=== PATIENT | female | born 1950 | race Caucasian/White ===

== ENCOUNTER 2017-10-03 01:51 | Outpatient (RCR) | payer MEDICARE, BC, SELFPAY ==
[2017-10-03] MEDS: Normal Saline Flush 10 ML SYR IVP (07:15)
[2017-10-03] MEDS: Acetaminophen 325 MG TAB 650 MG PO (07:19)
[2017-10-03] MEDS: diphenhydrAMINE 25 MG CAP PO (07:19)
[2017-10-03 07:22] VITALS: BP 140/81; PULSE 67; RESP 18; TEMP 36.9
[2017-10-03 07:50] VITALS: BP 136/77; PULSE 64; RESP 20; TEMP 37.1
[2017-10-03 08:10] VITALS: BP 138/79; PULSE 59; RESP 18; TEMP 36.6
[2017-10-03 08:25] VITALS: PULSE 64; RESP 138; TEMP 36.6
[2017-10-03 08:40] VITALS: BP 135/69; PULSE 65; RESP 18; TEMP 36.5
[2017-10-03 09:10] VITALS: BP 146/77; PULSE 59; RESP 18; TEMP 37.1
[2017-10-31] VITALS (7 sets, daily range): BP systolic 131–149; BP diastolic 73–88; PULSE 57–63; RESP 18–20; TEMP 37–37.2; O2SAT 99
[2017-10-31] MEDS: Normal Saline Flush 10 ML SYR IVP (07:20)
[2017-10-31] MEDS: Acetaminophen 325 MG TAB 650 MG PO (07:20)
[2017-10-31] MEDS: diphenhydrAMINE 25 MG CAP PO (07:21)
[2017-12-26] VITALS (8 sets, daily range): BP systolic 133–147; BP diastolic 78–86; PULSE 54–88; RESP 18–19; TEMP 36.4–37.1; O2SAT 93–96
[2017-12-26] MEDS: Acetaminophen 325 MG TAB 650 MG PO (07:43)
[2017-12-26] MEDS: diphenhydrAMINE 25 MG CAP PO (07:44)
[2017-12-26] MEDS: Normal Saline Flush 10 ML SYR IVP (08:00)
== END 2018-02-02 ==
LOC: INF 10-31 01:18
PROVIDERS: Visit Provider Family Medicine
DX: M05.9 Rheumatoid arthritis with rheumatoid factor, unspecified (principal)
CPT/HCPCS: 96365 ×3; 96366 ×3; J1745 ×3

== ENCOUNTER 2018-02-15 02:01 | Outpatient (RCR) | payer MEDICARE, BC, SELFPAY ==
[2018-02-15] MEDS: diphenhydrAMINE 25 MG CAP PO (07:17)
[2018-02-15] MEDS: Acetaminophen 325 MG TAB 650 MG PO (07:17)
[2018-02-15] MEDS: Normal Saline Flush 10 ML SYR IVP (07:18)
[2018-02-15 08:00] VITALS: BP 129/77; PULSE 63; RESP 18; TEMP 37
[2018-02-15 08:15] VITALS: BP 146/86; PULSE 66; RESP 18; TEMP 36
[2018-02-15 08:30] VITALS: BP 135/70; PULSE 65; RESP 18; TEMP 36
== END 2018-03-04 23:59 | disposition home or self-care (01) ==
LOC: INF 02:01
PROVIDERS: Visit Provider Family Medicine
DX: M05.9 Rheumatoid arthritis with rheumatoid factor, unspecified (principal)
CPT/HCPCS: 96365; 96366; J1745

== ENCOUNTER 2018-04-10 01:44 | Outpatient (RCR) | payer MEDICARE, BC, SELFPAY ==
[2018-04-10] MEDS: Normal Saline Flush 10 ML SYR IVP (07:10)
[2018-04-10] MEDS: Acetaminophen 325 MG TAB 650 MG PO (07:31)
[2018-04-10] MEDS: diphenhydrAMINE 25 MG CAP PO (07:32)
[2018-04-10 07:41] VITALS: BP 141/78; PULSE 65; RESP 18; TEMP 36.6; O2SAT 95
[2018-04-10 07:45] VITALS: BP 146/65; PULSE 58; RESP 18; TEMP 37; O2SAT 95
[2018-04-10 08:00] VITALS: BP 136/77; PULSE 64; RESP 18; TEMP 37; O2SAT 95
[2018-04-10 08:15] VITALS: BP 136/70; PULSE 59; RESP 18; TEMP 36.6; O2SAT 98
[2018-04-10 08:30] VITALS: BP 143/83; PULSE 65; RESP 18; TEMP 36.4; O2SAT 94
[2018-04-10 09:29] VITALS: BP 137/81; PULSE 61; RESP 18; TEMP 36.6; O2SAT 98
== END 2018-05-04 23:59 | disposition home or self-care (01) ==
LOC: INF 01:44
PROVIDERS: Visit Provider Family Medicine
DX: M05.9 Rheumatoid arthritis with rheumatoid factor, unspecified (principal)
CPT/HCPCS: 96365; 96366; J1745

== ENCOUNTER 2018-06-08 02:16 | Outpatient (RCR) | payer MEDICARE, BC, SELFPAY ==
[2018-06-08] MEDS: diphenhydrAMINE 25 MG CAP PO (09:07)
[2018-06-08] MEDS: Acetaminophen 325 MG TAB 650 MG PO (09:07)
[2018-06-08] MEDS: Normal Saline Flush 10 ML SYR IVP (09:08)
[2018-06-08 09:09] VITALS: BP 153/81; PULSE 66; RESP 18; TEMP 36.4; O2SAT 92
[2018-06-08 10:00] VITALS: BP 170/80; PULSE 62; RESP 18; TEMP 36.1; O2SAT 96
[2018-06-08 10:35] VITALS: BP 165/75; PULSE 61; RESP 18; TEMP 36.1; O2SAT 94
[2018-06-08 11:00] VITALS: BP 143/81; PULSE 58; RESP 18; TEMP 36.8; O2SAT 95
== END 2018-07-05 23:59 | disposition home or self-care (01) ==
LOC: INF 02:16
PROVIDERS: Visit Provider Family Medicine
DX: M05.9 Rheumatoid arthritis with rheumatoid factor, unspecified (principal)
CPT/HCPCS: 96365; 96366; J1745

== ENCOUNTER 2018-08-03 00:42 | Outpatient (RCR) | payer MEDICARE, BC, SELFPAY ==
[2018-08-03 07:37] VITALS: BP 157/89; PULSE 72; RESP 18; TEMP 36.3; O2SAT 95
[2018-08-03] MEDS: Acetaminophen 325 MG TAB 650 MG PO (07:38)
[2018-08-03] MEDS: diphenhydrAMINE 25 MG CAP PO (07:39)
[2018-08-03] MEDS: Normal Saline Flush 10 ML SYR IVP (08:13)
[2018-08-03 08:24] VITALS: BP 157/91; PULSE 71; RESP 18; TEMP 36.9; O2SAT 94
[2018-08-03 08:38] VITALS: BP 178/86; PULSE 69; RESP 18; TEMP 36.8; O2SAT 93
[2018-08-03 09:04] VITALS: BP 139/83; PULSE 66; RESP 18; TEMP 36.5; O2SAT 93
[2018-08-03 09:29] VITALS: BP 135/75; PULSE 65; RESP 18; TEMP 36.4; O2SAT 94
[2018-08-03 09:57] VITALS: BP 143/81; PULSE 63; RESP 18; TEMP 36.6; O2SAT 95
== END 2018-09-02 23:59 | disposition home or self-care (01) ==
LOC: INF 00:42
PROVIDERS: Visit Provider Family Medicine
DX: M05.9 Rheumatoid arthritis with rheumatoid factor, unspecified (principal)
CPT/HCPCS: 96365; 96366

== ENCOUNTER 2018-10-02 01:14 | Outpatient (RCR) | payer MEDICARE, BC, SELFPAY ==
[2018-10-02 07:35] VITALS: BP 155/94; PULSE 65; RESP 18; TEMP 36.4
[2018-10-02] MEDS: Normal Saline Flush 10 ML SYR IVP (08:09)
[2018-10-02 08:25] VITALS: BP 155/92; PULSE 65; RESP 16; TEMP 36.7; O2SAT 99
[2018-10-02 08:42] VITALS: BP 159/100; PULSE 69; RESP 16; TEMP 37; O2SAT 95
[2018-10-02 09:07] VITALS: BP 154/92; PULSE 65; RESP 16; TEMP 36.7; O2SAT 96
[2018-10-02 09:56] VITALS: BP 170/100; PULSE 71; RESP 18; TEMP 36
== END 2018-10-02 23:59 | disposition home or self-care (01) ==
LOC: INF 01:14
PROVIDERS: Visit Provider Family Medicine
DX: M05.9 Rheumatoid arthritis with rheumatoid factor, unspecified (principal)
CPT/HCPCS: 96365; 96366

== ENCOUNTER 2018-12-03 01:20 | Outpatient (RCR) | payer MEDICARE, BC, SELFPAY ==
[2018-12-03] VITALS (7 sets, daily range): BP systolic 125–149; BP diastolic 80–94; PULSE 54–62; RESP 18; TEMP 36.2–36.6; O2SAT 97–99
[2018-12-03] MEDS: Acetaminophen 325 MG TAB 650 MG PO (07:10)
[2018-12-03] MEDS: Cetirizine 10 MG TAB PO (07:22)
== END 2019-01-02 23:59 | disposition home or self-care (01) ==
LOC: INF 01:20
PROVIDERS: PCP Family Medicine; Visit Provider Family Medicine
DX: L40.50 Arthropathic psoriasis, unspecified (principal)
CPT/HCPCS: 96365; 96366; J1745

== ENCOUNTER 2019-01-23 01:37 | Outpatient (RCR) | payer MEDICARE, BC, SELFPAY ==
[2019-01-23] MEDS: Acetaminophen 325 MG TAB 650 MG PO (07:07)
[2019-01-23] MEDS: Loratidine 10 MG TAB PO (07:07)
[2019-01-23] MEDS: Normal Saline Flush 10 ML SYR IVP (07:07)
[2019-01-23 07:10] VITALS: BP 173/76; PULSE 72; RESP 18; TEMP 36.4; O2SAT 99
[2019-01-23 08:01] VITALS: BP 146/80; PULSE 62; RESP 18; TEMP 37; O2SAT 98
[2019-01-23 08:15] VITALS: BP 147/80; PULSE 61; RESP 18; TEMP 36.5; O2SAT 99
[2019-01-23 08:30] VITALS: BP 135/75; PULSE 75; RESP 18; TEMP 36.6; O2SAT 99
[2019-01-23 08:46] VITALS: BP 145/85; RESP 18; TEMP 36.5; O2SAT 98
== END 2019-02-02 23:59 | disposition home or self-care (01) ==
LOC: INF 01:37
PROVIDERS: PCP Family Medicine; Visit Provider Family Medicine
DX: L40.50 Arthropathic psoriasis, unspecified (principal)
CPT/HCPCS: 96365; 96366; J1745

== ENCOUNTER 2019-03-19 01:50 | Outpatient (RCR) | payer MEDICARE, BC, SELFPAY ==
[2019-03-19] VITALS (8 sets, daily range): BP systolic 136–163; BP diastolic 72–100; PULSE 57–67; RESP 18–20; TEMP 36.7–37.1; O2SAT 96–99
[2019-03-19] MEDS: Acetaminophen 325 MG TAB 650 MG PO (07:25)
[2019-03-19] MEDS: Loratidine 10 MG TAB PO (07:25)
[2019-03-19 08:17] LABS: Abs Immature Grans 0.01 k/cumm (0.0-0.09); Absolute Basophil Count 0.02 k/cumm (0.0-0.2); Absolute Eosinophil Count 0.08 k/cumm (0.0-0.7); Absolute Monocyte Count 0.31 k/cumm (0.11-0.7); Absolute Neutrophil Count 2.58 k/cumm (1.2-6.7); Basophils % 0.5; HGB 12.2 g/dL (12.0-15.5); Immature Grans % 0.2; Lymphocytes % 26.8; Mean Corp. HGB Concentration 32.1 g/dL (32.0-36.0); Mean Corpuscular Hemoglobin 30.4 pg (27.0-33.0); Mean Corpuscular Volume 94.8 fL (80-95); Mean Platelet Volume 10.7 fL (8.0-11.0); Monocytes % 7.6; Neutrophils % 62.9; Platelet Count 180 x1000/uL (130-400); RBC 4.01 m/cumm (4.00-5.20); RBC Distribution Width 13.9 % (11.7-14.6)
[2019-03-19] MEDS: Normal Saline Flush 10 ML SYR IVP (08:32)
[2019-03-19 08:38] LABS: ALT 21 U/L (14-59); AST 17 U/L (15-37); Albumin 3.4 g/dL (3.4-5.0); Alkaline Phosphatase 86 U/L (46-116); Anion Gap 5.9 mmol/L (3-11); BUN 17 mg/dL (7-18); Bilirubin, Total 0.5 mg/dL (0.2-1.0); CO2 29.1 mmol/L (21.0-32.0); CREATININE 0.79 mg/dL (0.55-1.02); Calcium 8.2 mg/dL (8.5-10.1); Chloride 108 mmol/L (98-107); Glucose 93 mg/dL (70-100); Potassium 3.9 mmol/L (3.5-5.1); Sodium 143 mmol/L (136-145); Total Protein 7.5 g/dL (6.4-8.2)
[2019-03-20 10:13] LABS: Cyclic Citrullinated Peptide <2.5 U/mL (<5.0)
[2019-03-20 11:33] LABS: Rheumatoid Factor 14 IU/mL (<12.5)
== END 2019-04-04 23:59 | disposition home or self-care (01) ==
LOC: INF 01:50
PROVIDERS: Internal Medicine Rheumatology; PCP Family Medicine; Visit Provider Family Medicine
DX: Z79.899 Other long term (current) drug therapy (principal); M19.90 Unspecified osteoarthritis, unspecified site; L40.50 Arthropathic psoriasis, unspecified
CPT/HCPCS: 36415; 80053; 86200; 96365; 96366; 85025; 86431; J1745

== ENCOUNTER 2019-05-08 01:18 | Outpatient (RCR) | payer MEDICARE, BC, SELFPAY ==
[2019-05-08] MEDS: Acetaminophen 325 MG TAB 650 MG PO (08:54)
[2019-05-08] MEDS: Loratidine 10 MG TAB PO (08:55)
[2019-05-08 09:33] VITALS: BP 117/62; PULSE 76; RESP 18; TEMP 37.1; O2SAT 96
[2019-05-08 09:48] VITALS: BP 133/80; PULSE 86; RESP 18; TEMP 37; O2SAT 100
[2019-05-08 10:03] VITALS: BP 133/76; PULSE 67; RESP 18; TEMP 36.7; O2SAT 96
[2019-05-08 10:17] VITALS: BP 168/77; PULSE 66; RESP 19; TEMP 37; O2SAT 97
[2019-05-08 10:47] VITALS: BP 155/84; PULSE 66; RESP 18; TEMP 37; O2SAT 96
[2019-05-08 11:17] VITALS: BP 157/80; PULSE 65; RESP 18; TEMP 37; O2SAT 96
== END 2019-06-04 23:59 | disposition home or self-care (01) ==
LOC: INF 01:18
PROVIDERS: PCP Family Medicine; Visit Provider Family Medicine
DX: L40.50 Arthropathic psoriasis, unspecified (principal)
CPT/HCPCS: 96365; 96366; J1745

== ENCOUNTER 2019-06-26 01:54 | Outpatient (RCR) | payer MEDICARE, BC, SELFPAY ==
[2019-06-26] VITALS (8 sets, daily range): BP systolic 117–146; BP diastolic 67–90; PULSE 58–77; RESP 18–19; TEMP 36.5–37.1; O2SAT 96–100
[2019-06-26] MEDS: Loratidine 10 MG TAB PO (09:06)
[2019-06-26] MEDS: Acetaminophen 325 MG TAB 650 MG PO (09:07)
[2019-06-26] MEDS: Normal Saline Flush 10 ML SYR IVP (09:09)
== END 2019-07-05 23:59 | disposition home or self-care (01) ==
LOC: INF 01:54
PROVIDERS: PCP Family Medicine; Visit Provider Family Medicine
DX: L40.50 Arthropathic psoriasis, unspecified (principal)
CPT/HCPCS: 96365; 96366; 96413; 96415; J1745

== ENCOUNTER 2019-10-08 02:07 | Outpatient (RCR) | payer MEDICARE, BC, SELFPAY ==
[2019-08-14] VITALS (7 sets, daily range): BP systolic 135–158; BP diastolic 75–94; PULSE 65–76; RESP 18–19; TEMP 36.3–36.9; O2SAT 96–99
[2019-08-14] MEDS: Normal Saline Flush 10 ML SYR IVP (09:06)
[2019-08-14] MEDS: Acetaminophen 325 MG TAB 650 MG PO (09:10)
[2019-08-14] MEDS: Loratidine 10 MG TAB PO (09:10)
== END 2019-10-08 23:59 | disposition home or self-care (01) ==
LOC: INF 02:07
PROVIDERS: PCP Family Medicine; Visit Provider Family Medicine
DX: L40.50 Arthropathic psoriasis, unspecified (principal)
CPT/HCPCS: 96365; 96366; 96413; 96415; J1745

== ENCOUNTER 2019-10-08 07:57 | Outpatient (RCR) | payer MEDICARE, BC, SELFPAY ==
[2019-10-08] MEDS: Acetaminophen 325 MG TAB 650 MG PO (08:14)
[2019-10-08] MEDS: Normal Saline Flush 10 ML SYR IVP (08:14)
[2019-10-08] MEDS: Loratidine 10 MG TAB PO (08:14)
[2019-10-08 08:46] LABS: TSH 4.89 uIU/mL (0.36-3.74)
[2019-10-08 08:55] VITALS: BP 128/88; PULSE 81; RESP 18; TEMP 37; O2SAT 97
[2019-10-08 08:56] VITALS: BP 132/80; PULSE 69; RESP 19; TEMP 37.1; O2SAT 96
[2019-10-08 09:11] VITALS: BP 173/76; PULSE 68; RESP 18; TEMP 37; O2SAT 94
[2019-10-08 09:26] VITALS: BP 135/85; PULSE 69; RESP 19; TEMP 36.6; O2SAT 96
[2019-10-08 09:42] VITALS: BP 127/84; PULSE 72; RESP 18; TEMP 36.6; O2SAT 97
[2019-10-08 10:12] VITALS: BP 128/76; PULSE 59; RESP 18; TEMP 36.8; O2SAT 98
== END 2019-11-03 23:59 | disposition home or self-care (01) ==
LOC: INF 07:57
PROVIDERS: PCP Family Medicine; Visit Provider Family Medicine
DX: E03.9 Hypothyroidism, unspecified (principal); L40.50 Arthropathic psoriasis, unspecified
CPT/HCPCS: 36415; 96365; 96366; 96413; 96415; 84443; J1745

== ENCOUNTER 2019-11-27 01:57 | Outpatient (RCR) | payer MEDICARE, BC, SELFPAY ==
[2019-11-27] VITALS (7 sets, daily range): BP systolic 125–156; BP diastolic 67–92; PULSE 58–63; RESP 18–19; TEMP 36.2–36.7; O2SAT 95–98
[2019-11-27] MEDS: Normal Saline Flush 10 ML SYR IVP (08:20)
[2019-11-27] MEDS: Loratidine 10 MG TAB PO (08:24)
[2019-11-27] MEDS: Acetaminophen 325 MG TAB 650 MG PO (08:24)
== END 2019-12-03 23:59 | disposition home or self-care (01) ==
LOC: INF 01:57
PROVIDERS: PCP Family Medicine; Visit Provider Family Medicine
DX: L40.59 Other psoriatic arthropathy (principal)
CPT/HCPCS: 96365; 96366; 96413; 96415; J1745

== ENCOUNTER 2020-01-15 02:21 | Outpatient (RCR) | payer MEDICARE, BC, SELFPAY ==
[2020-01-15] VITALS (7 sets, daily range): BP systolic 138–159; BP diastolic 70–87; PULSE 57–67; RESP 18–19; TEMP 36.2–36.6; O2SAT 94–99
[2020-01-15] MEDS: Normal Saline Flush 10 ML SYR IVP (08:30)
[2020-01-15] MEDS: Loratidine 10 MG TAB PO (09:15)
[2020-01-15] MEDS: Acetaminophen 325 MG TAB 650 MG PO (09:20)
== END 2020-02-03 23:59 | disposition home or self-care (01) ==
LOC: INF 02:21
PROVIDERS: PCP Family Medicine; Visit Provider Family Medicine
DX: L40.59 Other psoriatic arthropathy (principal)
CPT/HCPCS: 96365; 96366; 96413; 96415; J1745

== ENCOUNTER 2020-03-04 08:30 | Outpatient (RCR) | payer MEDICARE, BC, SELFPAY ==
[2020-03-04] VITALS (7 sets, daily range): BP systolic 126–159; BP diastolic 75–84; PULSE 57–66; RESP 15–19; TEMP 36.2–36.9; O2SAT 94–98
[2020-03-04] MEDS: Acetaminophen 325 MG TAB 650 MG PO (08:59)
[2020-03-04] MEDS: Loratidine 10 MG TAB PO (08:59)
[2020-03-04] MEDS: Normal Saline Flush 10 ML SYR IVP (09:21)
== END 2020-03-04 23:59 | disposition home or self-care (01) ==
LOC: INF 08:30
PROVIDERS: PCP Family Medicine; Visit Provider Family Medicine
DX: L40.59 Other psoriatic arthropathy (principal)
CPT/HCPCS: 96365; 96366

== ENCOUNTER 2020-04-21 08:30 | Outpatient (RCR) | payer MEDICARE, BC, SELFPAY ==
[2020-04-21] VITALS (7 sets, daily range): BP systolic 118–132; BP diastolic 71–86; PULSE 61–111; RESP 18–19; TEMP 36.7–37.5; O2SAT 95–100
[2020-04-21] MEDS: Loratidine 10 MG TAB PO (08:43)
[2020-04-21] MEDS: Acetaminophen 325 MG TAB 650 MG PO (08:43)
== END 2020-05-04 23:59 | disposition home or self-care (01) ==
LOC: INF 08:30
PROVIDERS: PCP Family Medicine; Visit Provider Family Medicine
DX: L40.50 Arthropathic psoriasis, unspecified (principal)
CPT/HCPCS: 96365; 96366; 96413; 96415

== ENCOUNTER 2020-06-09 08:00 | Outpatient (RCR) | payer MEDICARE, BC, SELFPAY ==
[2020-05-05 00:01] VITALS: BP 129/84; PULSE 61; RESP 19; TEMP 36.8
[2020-06-09 08:01] VITALS: BP 137/72; PULSE 98; RESP 19; TEMP 36.9; O2SAT 97
[2020-06-09] MEDS: Normal Saline Flush 10 ML SYR IVP ×2 (08:10→08:42)
[2020-06-09] MEDS: Acetaminophen 325 MG TAB 650 MG PO (08:13)
[2020-06-09] MEDS: Loratidine 10 MG TAB PO (08:13)
[2020-06-09 08:42] VITALS: BP 133/89; PULSE 102; RESP 18; TEMP 36.9; O2SAT 96
[2020-06-09 08:57] VITALS: BP 133/80; PULSE 75; RESP 18; TEMP 36.8; O2SAT 97
[2020-06-09 09:12] VITALS: BP 130/82; PULSE 90; RESP 18; TEMP 36.8; O2SAT 97
[2020-06-09 09:27] VITALS: BP 151/85; PULSE 98; RESP 18; TEMP 37.1; O2SAT 96
[2020-06-09 09:57] VITALS: BP 159/93; PULSE 92; RESP 18; TEMP 36.8; O2SAT 99
== END 2020-07-05 23:59 | disposition home or self-care (01) ==
LOC: INF 08:00
PROVIDERS: PCP Family Medicine; Visit Provider Family Medicine
DX: L40.59 Other psoriatic arthropathy (principal)
CPT/HCPCS: 96365; 96366; J1745

== ENCOUNTER 2020-08-25 02:24 | Outpatient (RCR) | payer MEDICARE, BC, SELFPAY ==
[2020-07-06 00:02] VITALS: BP 159/93; PULSE 92; RESP 18; TEMP 36.8
[2020-08-25] MEDS: Loratidine 10 MG TAB PO (09:19)
[2020-08-25] MEDS: Acetaminophen 325 MG TAB 650 MG PO (09:19)
[2020-08-25] MEDS: Normal Saline Flush 10 ML SYR IVP ×2 (09:22→09:49)
[2020-08-25 09:52] VITALS: BP 127/86; PULSE 69; RESP 20; TEMP 36.3; O2SAT 98
[2020-08-25 10:15] VITALS: BP 139/93; PULSE 64; RESP 16; TEMP 36.4; O2SAT 99
[2020-08-25 10:40] VITALS: BP 132/86; PULSE 86; RESP 18; TEMP 36.7; O2SAT 96
[2020-08-25 11:10] VITALS: BP 137/83; PULSE 69; RESP 16; TEMP 37.2; O2SAT 100
[2020-08-25 11:45] VITALS: BP 137/77; PULSE 91; RESP 20; TEMP 36.6; O2SAT 95
== END 2020-09-02 23:59 | disposition home or self-care (01) ==
LOC: INF 02:24
PROVIDERS: PCP Family Medicine; Visit Provider Family Medicine
DX: L40.59 Other psoriatic arthropathy (principal)
CPT/HCPCS: Q5104; 96365; 96366; 96413; 96415; J1745

== ENCOUNTER 2020-10-30 04:27 | Outpatient (RCR) | payer MEDICARE, BC, SELFPAY ==
[2020-09-03 00:11] VITALS: BP 137/77; PULSE 91; RESP 20; TEMP 36.6
[2020-10-30] MEDS: Acetaminophen 325 MG TAB 650 MG PO (07:49)
[2020-10-30] MEDS: Loratidine 10 MG TAB PO (07:49)
[2020-10-30 08:10] VITALS: BP 134/85; PULSE 85; RESP 17; TEMP 37.2; O2SAT 98
[2020-10-30] MEDS: Normal Saline Flush 10 ML SYR IVP (08:29)
[2020-10-30 08:45] VITALS: BP 113/74; PULSE 64; RESP 16; TEMP 37; O2SAT 98
[2020-10-30 09:00] VITALS: BP 126/81; PULSE 76; RESP 16; TEMP 37; O2SAT 97
[2020-10-30 09:15] VITALS: BP 137/82; PULSE 74; RESP 16; TEMP 36.7; O2SAT 97
[2020-10-30 09:30] VITALS: BP 122/80; PULSE 63; RESP 16; TEMP 36.9; O2SAT 97
[2020-10-30 10:06] VITALS: BP 134/87; PULSE 78; RESP 16; TEMP 37.1; O2SAT 98
== END 2020-11-02 23:59 | disposition home or self-care (01) ==
LOC: INF 04:27
PROVIDERS: PCP Family Medicine; Visit Provider Family Medicine
DX: L40.59 Other psoriatic arthropathy (principal)
CPT/HCPCS: 96365; 96366; 96413; 96415; J1745

== ENCOUNTER 2021-01-15 04:29 | Outpatient (RCR) | payer MEDICARE, BC, SELFPAY ==
[2020-11-03 00:13] VITALS: BP 134/87; PULSE 78; RESP 16; TEMP 37.1
[2021-01-15] VITALS (7 sets, daily range): BP systolic 112–148; BP diastolic 75–85; PULSE 73–84; RESP 14–16; TEMP 36.3–37.3; O2SAT 96–100
[2021-01-15] MEDS: Acetaminophen 325 MG TAB 650 MG PO (12:40)
[2021-01-15] MEDS: Loratidine 10 MG TAB PO (12:41)
== END 2021-02-02 23:59 | disposition home or self-care (01) ==
LOC: INF 04:29
PROVIDERS: PCP Family Medicine; Visit Provider Family Medicine
DX: L40.59 Other psoriatic arthropathy (principal)
CPT/HCPCS: 36415; 96365; 96366; 96413; 96415; J1745

== ENCOUNTER → 2021-02-09 10:45 | Outpatient (BNVA) | payer MEDICARE, BC, SELFPAY | PROVIDERS: PCP Family Medicine; Referring Provider Family Medicine; Visit Provider Surgery | DX: L98.8 Other specified disorders of the skin and subcutaneous tissue (principal) | CPT/HCPCS: 99203 ==

== ENCOUNTER 2021-03-01 02:50 | Outpatient (CLI) | payer MEDICARE, BC, SELFPAY ==
[2021-03-01 10:33] LABS: Source Nasal/Nares
[2021-03-01 13:33] LABS: COVID-19 PCR Negative (Negative)
== END 2021-03-01 02:51 | disposition home or self-care (01) ==
LOC: LBO 02:51
PROVIDERS: PCP Family Medicine; Visit Provider Surgery
DX: Z20.822 Contact with and (suspected) exposure to COVID-19 (principal); Z01.818 Encounter for other preprocedural examination
CPT/HCPCS: 87635

== ENCOUNTER 2021-03-03 06:17 | Day surgery (SDC) | payer MEDICARE, BC, SELFPAY ==
[2021-03-03 06:20] VITALS: BP 144/96; PULSE 63; RESP 18; TEMP 36.5; O2SAT 99
--- NOTE | 2021-03-03 07:03 | W.PM.OP ---
Date of service: 03/03/21 Time of Service: 07:30 Operative Note Operative Note DATE OF PROCEDURE: 03/03/21 PRE-OP DIAGNOSIS: Right upper extremity skin lesion and left temporal skin lesion POST-OP DIAGNOSIS: same PROCEDURE: excision of skin lesions SURGEON: Gilda Tadeo ANESTHESIA TYPE: Local By Surgeon and MAC Refer to Anesthesia Record ESTIMATED BLOOD LOSS: 25 PATHOLOGY: other (RUE skin lesion and left temporal lesion) COMPLICATIONS: None Patient was transported to: same day Patient's condition: stable Indications: RUE lesion suspicious for squamous vs basel cell cancer. Left temporal lesion ? benign nevus vs atypical. Recommend excision of both in the OR under MAC sedation. Risks, benefits, complications of the procedure were reviewed with her. Complications include but are not limited to bleeding, infection, wound dehiscence, recurrence and need for further resection if margins are not clear. Questions were entertained and answered to her satisfaction and she wished to proceed. Proceed with excision of skin lesions under MAC sedation with local. Procedure Description: After informed consent was obtained the patient was taken to the Operating room and placed in a supine position. Her right upper extremity was extended and placed on an arm board. Her head was rotated to the right. The patient was placed under deep sedation by anesthesia. A time out was done. The patients name, , procedure to be performed and site, allergies to medications, antibiotic prophilaxis were reviewed. Fire risk was assessed. The skin on her left adventist was then prepped and draped in a sterile surgical fashion. 0.5% Bupivocaine was injected into the dermis and subcutaneous tissue of the left adventist. An incision measuring 1.5 x 0.8 cm was made with a 15 blade around the skin lesion. Dissection was done down to the subcutaneous tissue with cautery. The lesion was removed and a stitch was placed on the lateral border and placed in formalin. There was a small amount of bleeding and this was stopped with cautery. The subcutaneous tissue was re-approximated with a running 4-0 Vicryl suture. Interrupted 3-0 proline was used to re-approximate the dermis. Skin was cleaned and dried. Next the skin on her RUE was then prepped and draped in a sterile surgical fashion. 0.5% Bupivocaine was injected into the dermis and subcutaneous tissue of the RUE. An incision measuring 7 x 3 cm was made with a 15 blade around the skin lesion. Dissection was done down to the subcutaneous tissue with cautery. The lesion was removed and a stitch was placed on the medial border and placed in formalin. There was a small amount of bleeding and this was stopped with cautery. The subcutaneous tissue was re-approximated with interrupted 3-0 Vicryl suture. Interrupted 3-0 proline was used to re-approximate the dermis. Skin was cleaned and dried. Mastasol and steri-strips were applied. 4x4 were placed over the incision and secured with Coban. The patient tolerated the procedure well and there were no immediate complications. Needle and sponge counts were correct at the end of the case.
--- NOTE | 2021-03-03 07:04 | PDOC.DSDIS_ITS ---
Discharge Plan Disposition Patient Disposition: HOME Condition: Good Discharge Details Reason For Visit: Excision of skin lesions Attending Provider: Gilda Tadeo Primary Care Provider: Mariam Winn Home Meds and New Rx's Prescriptions: Continued Remicade 100 mg recon soln IV RF: 0 naproxen sodium [Aleve] 220 mg capsule 220 mg PO Q12H RF: 0 albuterol sulfate [Ventolin HFA] 90 mcg/actuation HFA aerosol inhaler 2 puff inhalation Q6H PRNRF: 0 levothyroxine 25 mcg capsule 25 mcg PO DAILY RF: 0 Discharge Instructions Additional Instructions: Activity at Home after surgery: 1. As tolerated Diet, Nutrition, & wound healin. As tolerated Pain Medications: 1. Tylenol 650mg every 6 hours as needed and Ibuprofen 600 mg every 6 hours as needed. You may alternate between the 2 medications every 3 hours 2. If a narcotic has been prescribed take as directed only for breakthrough pain For Constipation: 1. Take Milk of Magnesia or MiraLax as needed for constipation Other: 1. You may shower daily. Do not scrub the incisions 2. Do not soak the incisions for 1 week 3. You may alternate ice and heat as needed for pain and swelling Wound Care: 1. Keep the incisions clean and dry 2. Cover arm incision when working in the garden Please call our office if you develop: 1. Fevers >101.5 2. Nausea or Vomiting 3. Worsening pain 4. Redness and thick discharge from the wounds If after hours please call the Hospital at and ask to speak to the on-call surgeon Referrals: Michelle Soliman PA [[employer]] - 03/18/21 11:00 am Activity:: Activity as Tolerated Diet:: As Tolerated Discharge Orders Discharge Orders: Discharge Order (Routine); Ordered 03/03/21 Ordered By: Gilda Tadeo
[2021-03-03] MEDS: Lactated Ringers 1,000 ML 80 ML IV (07:05)
--- NOTE | 2021-03-03 07:13 | ANES.PREOP_ITS ---
General Info Date of Service Date Performed: 03/03/21 Height: 5 ft 3 in Weight: 97.5 kg Body Mass Index (BMI): 38.0 Surgical Procedure: Operation Date: 03/03/21 07:40 Proposed Procedures Side Surgeon p EXCISION SKIN LESION LT BAPTISM Left Gilda Tadeo MD Meds Allergies and Home Medications Allergies Allergy/AdvReac Type Severity Reaction Status Date / Time No Known Allergies Allergy Verified 03/03/21 05:56 Home Medication Medication Instructions Recorded albuterol sulfate 90 mcg/actuation 2 puff INHALATION Q6H PRN 02/09/21 aerosol inhaler infliximab 100 mg intravenous IV 02/09/21 solution levothyroxine 25 mcg capsule 25 mcg PO DAILY 02/09/21 naproxen sodium 220 mg capsule 220 mg PO Q12H 02/09/21 Current Visit Medications: Current Medications Generic Name Dose Route Start Last Admin Trade Name Freq PRN Reason Stop Dose Admin Ringer's Solution 1,000 mls @ 80 mls/hr 03/03/21 06:00 03/03/21 07:05 IV 04/01/21 23:59 80 mls/hr INFUSION [facility] Administration Cefazolin Sodium/Dextrose 2 gm in 50 mls @ 100 mls/hr 03/03/21 06:00 Ancef Duplex IVPB 03/03/21 16:00 PREOP REFUGIO Ondansetron HCl 4 mg/ Sodium 52 mls @ 200 mls/hr 03/03/21 07:06 Chloride IVPB Q6H PRN PRN IV Miscellaneous Supplies 1 each 03/03/21 06:00 Iv Access IV 04/01/21 23:59 DIRECTED REFUGIO Ibuprofen 600 mg 03/03/21 07:06 Ibuprofen 600 Mg Tab PO Q6H PRN PRN Pain Sodium Chloride 0 ml 03/03/21 06:00 Normal Saline Flush 10 Ml Syr IV 04/01/21 23:59 PRN PRN Sodium Chloride 0 ml 03/03/21 06:00 Normal Saline 10 Ml Vial IJ 04/01/21 23:59 DIRECTED PRN Sterile Water 0 ml 03/03/21 06:00 Water,Injection,Sterile 10 Ml Vial IJ 04/01/21 23:59 DIRECTED PRN PFSH Active Problems Active Problems: Problem Status Onset Code Skin lesions L98.9 Reactive airway disease J45.909 Psoriasis L40.9 Morbid obesity E66.01 Hypothyroid E03.9 Osteoarthritis M19.90 Osteopenia M85.80 Rheumatoid arthritis M06.9 Medical History Medical History Hypothyroid Morbid obesity Osteoarthritis Osteopenia Psoriasis Reactive airway disease Rheumatoid arthritis Surgical History Surgical History (Updated 03/03/21 @ 07:08 by Valentine Walton) History of arthroscopic knee surgery History of cholecystectomy Tobacco Smoking/Tobacco Use Status: Never Alcohol Alcohol Intake: never Substance Use Substance use type: does not use Vital Signs and Lab Results Vital Signs Most Recent Vital Signs in EMR: Most Recent Vital Signs Temp Pulse Resp BP Pulse Ox 36.5 C 63 18 144/96 H 99 03/03/21 06:20 03/03/21 06:20 03/03/21 06:20 03/03/21 06:20 03/03/21 06:20 Lab Results Blood Type / Crossmatch: No Data to Display Complete Blood Count: No Data to Display Complete Metabolic Panel: No Data to Display Liver Function Panel: No Data to Display Coagulation Panel: No Data to Display Cardiac Panel: No Data to Display Arterial Blood Gas: No Data to Display Venous Blood Gas: No Data to Display Pancreas Panel: No Data to Display Thyroid Panel: No Data to Display Infectious Disease: Coronavirus (COVID-19)(PCR) Negative (Negative) 03/01/21 08:57 03/01/21 Coronavirus 2019 Source Nasal/Nares 03/01/21 08:57 03/01/21 Blood Cultures: No Data to Display Toxicology Panel: No Data to Display Anesthesia Assessment and Plan Anesthesia History Personal History: No History of Anesthesia Complications Family History: No Family History of Anesthesia Complications Exercise Tolerance Exercise Tolerance: Metabolic Equivalents>4 Pertinent Negatives Pertinent Negatives: No Symptoms of GERD, No Major Cardiovascular Symptoms or Complaints, No Major Pulmonary Symptoms or Complaints and No History of CVA/TIA Cardiac & Pulmonary Exam Cardiac Exam: Normal S1/S2 Heart Sounds Pulmonary Exam: Clear Bilateral Breath Sounds Airway Exam Known Difficult Airway: No Mallampati Class: 3 Mouth Opening: Normal (> 3cm) Thyromental Distance: Greater than 3 cm Neck Range of Motion: Full ROM Neck Circumference: Thick Teeth Condition: Normal Dentition Airway Comments: Top front teeth 11 chipped ASA Classification ASA Score: ASA 2 Emergency Case?: No NPO Status NPO Status: NPO Clears >2 hours, Solids >8 hours Anesthesia Plan Resuscitation Status: Full Code Anesthesia Technique: General Anesthesia Airway Planned: Natural Airway Monitors Used: Standard Monitors
[2021-03-03 07:16] VITALS: BMI 38.0
[2021-03-03] MEDS: ceFAZolin 2 GM/50 ML BAG IVPB (07:35)
--- NOTE | 2021-03-03 07:48 | SKI_PTH ---
PATIENT: Perla Laws LOC: [facility] U#:[id number] AGE/SX: 70/F ROOM: RE03/03/[address]: Gilda Tadeo MD : 1950 BED: DIS: 03/03/2021 SPEC #: [id number] RECD: 03/03/21 12:43 STATUS: GISELE REQ #: [id number] ALLAN: 03/03/21 07:[address]: Gilda Tadeo DEPT: Surgical Specimen RECD BY: Maureen Carrillo ENTERED: 03/03/21 12:46 SP TYPE: VAMSHI ZELAYA DR: Mariam Winn Tissues: 1 - SKIN BIOPSY(SHAVE/PUNCH) 2 - SKIN BIOPSY(SHAVE/PUNCH) Procedures: SKIN LEVEL 4 Comments: [id number]
[2021-03-03] MEDS: Bupivacaine 0.25% Pres-Free 30 ML VIAL (08:24)
[2021-03-03 08:25] VITALS: BP 143/94; PULSE 77; RESP 18; TEMP 36.4; O2SAT 95
--- NOTE | 2021-03-03 08:29 | W.ANESPOSTOP ---
Postoperative Evaluation Date, Time and Location Date Performed: 03/03/21 Time Performed: : Patient Location: Day Surgery Unit Vital Signs Most Recent Imported Vital Signs: Most Recent Vital Signs Temp Pulse Resp BP Pulse Ox 36.5 C 63 18 144/96 H 99 03/03/21 06:20 03/03/21 06:20 03/03/21 06:20 03/03/21 06:20 03/03/21 06:20 Most Recent Manually Entered Vital Signs: Adult Blood Pressure: 143/94 Heart Rate: 79 Respirations: 12 Oxygen Saturation (%): 98 Temperature (C): 36.7 C Pain Score (0-10 Scale): 0 Assessment Mental Status: Awake (Alert & Oriented to Patient Baseline) Airway and Respiratory Function: Patent airway with normal (patient baseline) respiratory exam Cardiovascular Function: Hemodynamically Stable Hydration Status: Adequately Hydrated Nausea & Vomiting: No Nausea or Vomiting Pain: Pt. Denies Any Pain Peripheral Nerve Block: Patient did not receive a nerve block
[2021-03-03 08:31] VITALS: BP 143/94; PULSE 79; RESP 12; TEMPC 36.7; O2SAT 98
[2021-03-03 09:00] VITALS: BP 146/93; PULSE 78; RESP 18; TEMP 36.4; O2SAT 95
== END 2021-03-03 06:18 | disposition home or self-care (01) ==
PROVIDERS: PCP Family Medicine; Visit Provider Surgery
PROC: 0HB1XZZ Excision of Face Skin, External Approach (ICD-10-PCS; CPT 11606; principal; 2021-03-03 07:30)
DX: C44.622 Squamous cell carcinoma of skin of right upper limb, including shoulder (principal); L82.1 Other seborrheic keratosis
CPT/HCPCS: 11606; 11442; 12032; 12051; 88305; J0690; J2001; J2250

== ENCOUNTER → 2021-03-18 10:47 | Outpatient (BNVA) | payer MEDICARE, BC, SELFPAY | PROVIDERS: PCP Family Medicine; Referring Provider Family Medicine; Visit Provider Physical Therapy Assistant | DX: Z48.817 Encounter for surgical aftercare following surgery on the skin and subcutaneous tissue (principal) ==

== ENCOUNTER 2021-04-06 01:58 | Outpatient (RCR) | payer MEDICARE, BC, SELFPAY ==
[2021-02-03 00:15] VITALS: BP 128/84; PULSE 83; RESP 14; TEMP 36.8
[2021-04-06] VITALS (8 sets, daily range): BP systolic 126–157; BP diastolic 79–92; PULSE 69–88; RESP 17–18; TEMP 36.7–37; O2SAT 94–100
[2021-04-06] MEDS: Normal Saline Flush 10 ML SYR IVP (08:00)
[2021-04-06] MEDS: Loratidine 10 MG TAB PO (08:00)
[2021-04-06] MEDS: Acetaminophen 325 MG TAB 650 MG PO (08:00)
== END 2021-05-04 23:59 | disposition home or self-care (01) ==
LOC: INF 01:58
PROVIDERS: PCP Family Medicine; Visit Provider Family Medicine
DX: L40.50 Arthropathic psoriasis, unspecified (principal); Z79.899 Other long term (current) drug therapy
CPT/HCPCS: 96365; 96366; 96413; 96415; J1745

== ENCOUNTER 2021-06-02 00:38 | Outpatient (RCR) | payer MEDICARE, BC, SELFPAY ==
[2021-05-05 00:01] VITALS: BP 157/92; PULSE 69; RESP 17; TEMP 36.7
[2021-06-02] MEDS: Normal Saline Flush 10 ML SYR IVP (10:20)
[2021-06-02] MEDS: Loratidine 10 MG TAB PO (10:20)
[2021-06-02] MEDS: Acetaminophen 325 MG TAB 650 MG PO (10:20)
[2021-06-02 10:30] VITALS: BP 129/83; PULSE 89; RESP 16; O2SAT 95
[2021-06-02 10:50] VITALS: BP 130/68; PULSE 71; RESP 16; TEMP 37; O2SAT 94
[2021-06-02 11:05] VITALS: BP 118/76; PULSE 77; RESP 16; TEMP 37.2; O2SAT 94
[2021-06-02 11:20] VITALS: BP 134/86; PULSE 70; RESP 16; TEMP 36.2; O2SAT 96
[2021-06-02 12:30] VITALS: BP 131/82; PULSE 68; RESP 18; TEMP 36.9; O2SAT 97
== END 2021-06-04 23:59 | disposition home or self-care (01) ==
LOC: INF 00:38
PROVIDERS: PCP Family Medicine; Visit Provider Family Medicine
DX: L40.50 Arthropathic psoriasis, unspecified (principal)
CPT/HCPCS: 96365; 96366; 96413; 96415; J1745

== ENCOUNTER 2024-01-10 13:48 | Outpatient (REF) | payer MEDICARE, BC, SELFPAY ==
--- NOTE | 2024-01-10 16:30 | SKI_PTH ---
PATIENT: Perla Laws LOC: [facility] U#:[id number] AGE/SX: 73/F ROOM: RE01/10/[address]: Grecia Saldivar : 1950 BED: DIS: 01/10/2024 SPEC #: [id number] RECD: 01/11/24 14:27 STATUS: GISELE REEunice #: [id number] ALLAN: 01/10/24 16:[address]: Grecia Saldivar DEPT: Surgical Specimen RECD BY: Esthela Boyd Tissues: 1 - SKIN BIOPSY(SHAVE/PUNCH) Procedures: SKIN LEVEL 4 Comments: [id number]
== END 2024-01-10 13:49 | disposition home or self-care (01) ==
LOC: LBN 13:48
PROVIDERS: PCP Family Medicine; Visit Provider Family Medicine
DX: L98.9 Disorder of the skin and subcutaneous tissue, unspecified (principal); Z85.828 Personal history of other malignant neoplasm of skin
CPT/HCPCS: 88305

== ENCOUNTER → 2024-04-04 08:48 | Outpatient (BNVA) | payer MEDICARE, BC, SELFPAY | PROVIDERS: PCP Family Medicine; Referring Provider Family Medicine; Visit Provider Physical Therapy Assistant | DX: Z12.11 Encounter for screening for malignant neoplasm of colon (principal) ==

== ENCOUNTER 2024-10-25 10:19 | Outpatient (REF) | payer MEDICARE, BC, SELFPAY ==
[2024-10-25 15:45] LABS: Abs Immature Grans 0.02 10^3/uL (0.0-0.06); Absolute Basophil Count 0.04 10^3/uL (0.0-0.2); Absolute Eosinophil Count 0.07 10^3/uL (0.0-0.7); Absolute Lymphocyte Count 1.73 10^3/uL (1.2-3.4); Absolute Monocyte Count 0.71 10^3/uL (0.1-0.8); Absolute Neutrophil Count 3.08 10^3/uL (1.2-6.7); Basophils % 0.7 %; Eosinophils % 1.2 %; HCT 39.4 % (36.0-46.0); HGB 13.2 g/dL (11.2-15.7); Immature Grans % 0.4 %; Lymphocytes % 30.6 %; MCHC 33.5 % (32.0-36.0); MCV 96 fL (80-95); MPV 11.3 fL (8.0-11.0); Monocytes % 12.6 %; Neutrophils % 54.5 %; Platelet Count 187 10^3/uL (130-400); RBC 4.12 10^6/uL (3.93-5.22); RDW 13.4 % (11.7-14.6); RDW-SD 47.6 fL; WBC 5.65 10^3/uL (4.4-10.8)
[2024-10-25 15:52] LABS: ESR 41 mm/hr (0-30)
[2024-10-25 16:14] LABS: ALT 50 U/L (14-59); AST 39 U/L (15-37); Albumin 3.2 g/dL (3.4-5.0); Alkaline Phosphatase 167 U/L (46-116); Anion Gap 7.6 mmol/L (3-11); BUN 18 mg/dL (7-18); Bilirubin, Total 0.8 mg/dL (0.2-1.0); CO2 30.4 mmol/L (21.0-32.0); CREATININE 0.8 mg/dL (0.55-1.02); Calculated LDL 98 mg/dL (<100); Chloride 103 mmol/L (98-107); Cholesterol 155 mg/dL (<200); Estimated GFR 77.75 (mL/min/1.73m2); Glucose 108 mg/dL (74-106); HDL Cholesterol 38 mg/dL (>or=50); Potassium 3.6 mmol/L (3.5-5.1); Sodium 141 mmol/L (136-145); Triglyceride 99 mg/dL (<150)
[2024-10-28 09:23] LABS: Lyme Ab w Rflx to Lyme Confirm Negative (Negative)
[2024-10-29 12:33] LABS: Anaplasma phagocytophilum Negative (Negative); B. miyamotoi PCR Negative (Negative); Babesia divergens/MO-1 Negative (Negative); Babesia duncani Negative (Negative); Babesia microti Negative (Negative); Ehrlichia chaffeensis Negative (Negative); Ehrlichia ewingii/canis Negative (Negative); Ehrlichia muris eauclairensis Negative (Negative)
== END 2024-10-25 10:20 | disposition home or self-care (01) ==
LOC: LBN 10:19
PROVIDERS: PCP Family Medicine; Visit Provider Family Medicine
DX: M05.79 Rheumatoid arthritis with rheumatoid factor of multiple sites without organ or systems involvement; W57.XXXA Bitten or stung by nonvenomous insect and other nonvenomous arthropods, initial encounter; Z86.19 Personal history of other infectious and parasitic diseases; Z13.6 Encounter for screening for cardiovascular disorders
CPT/HCPCS: 80053; 80061; 85652; 87798; 85025; 86618

== ENCOUNTER 2024-12-05 02:07 | Outpatient (CLI) | payer MEDICARE, BC, SELFPAY ==
--- NOTE | 2024-12-05 06:37 | DI.MAMMO_ITS ---
Exam(s) MAMMO SCREENING EXAM: MAMMO SCREENING CLINICAL HISTORY: screening,z12.39. TECHNIQUE: Bilateral full field digital CC and MLO mammographic images were obtained with 3D tomosynthesis and utilizing computer aided detection (CAD). COMPARISON: Prior outside mammograms were reviewed. FINDINGS: There has been no significant change in the appearance and distribution of the fibroglandular tissue. There are no new findings in the immediate vicinity of a biopsy marker clip in the central left breast 12 o'clock position. There are no new spiculated masses nor new malignant appearing microcalcification groups. Multiple bilateral benign-appearing microcalcifications are again evident. There is no significant architectural distortion nor skin thickening-retraction. IMPRESSION: No radiographic evidence of malignancy. BI-RADS Category 2 - Benign Findings Breast Density - Category B - There are scattered areas of fibroglandular density. Breast density Category C or D implies that the patient has dense breast tissue. Dense breast tissue can make it harder to find cancer on a mammogram. Dense breast tissue is also associated with an increased risk of breast cancer. This information about the result of the mammogram report was provided to the patient to raise their awareness. Use this report when you speak with the patient about their risks for breast cancer, which includes their family history. At that time, you may recommend additional screening tests (Ultrasound or MRI) as these tests may add significant information. A negative radiographic report should not delay biopsy if a dominant or clinically suspicious mass is present. Up to ten percent of cancers are not identified on mammography. A negative report may reinforce clinical impression. Adenosis and dense breasts may obscure an underlying neoplasm. False positive reports average 6 to 10%. Patient will receive a letter notifying them of these results.
== END 2024-12-05 02:27 ==
LOC: DI 02:08
PROVIDERS: PCP Family Medicine; Visit Provider Family Medicine
DX: Z12.31 Encounter for screening mammogram for malignant neoplasm of breast (principal); R92.323 Mammographic fibroglandular density, bilateral breasts
CPT/HCPCS: 77063; 77067